=== PATIENT | female | born 1985 ===

== ENCOUNTER 2022-02-12 22:36 | Inpatient (IN) | payer OTHER ==
[2022-02-12] MEDS ORDERED: LACTATED RINGERS 1,000 ML IV SCH (23:45)
[2022-02-13] MEDS ORDERED: INSULIN GLARGINE 100 UNITS/ML SUB-Q ONE ×3 (00:17→04:00)
[2022-02-13] MEDS ORDERED: ACETAMINOPHEN 325 MG TAB PO PRN (00:32)
[2022-02-13] MEDS ORDERED: BUTORPHANOL 2 MG/1 ML INJ IV PRN (00:32)
[2022-02-13] MEDS ORDERED: ePHEDrine SULFATE 50 MG/1 ML INJ IV PRN (00:32)
[2022-02-13] MEDS ORDERED: fentaNYL 100 MCG/2 ML INJ IV PRN (00:32)
[2022-02-13] MEDS ORDERED: CARBOPROST TROMETHAMINE 250 MCG/1 ML INJ IM PRN (00:32)
[2022-02-13] MEDS ORDERED: METHYLERGONOVINE MALEATE 0.2 MG/ML VIAL IM PRN (00:32)
[2022-02-13] MEDS ORDERED: TERBUTALINE 1 MG/1 ML INJ SUB-Q PRN (00:32)
[2022-02-13] MEDS ORDERED: SODIUM CHLORIDE 0.9% 1000 ML 1,000 ML IV SCH (00:45)
--- NOTE | 2022-02-13 00:47 | History and Physical Report ---
History of Present Illness Date of examination: 02/13/22 Date of admission: 02/13/2022 Chief complaint: Leaking of fluid History of present illness: 36-year-old at 39-6/7 weeks gestation presents to OB triage reporting leaking of fluid. There is no vaginal bleeding. There are irregular contractions. There is good movement. In OB triage, ROM plus is positive. OB ultrasound limited revealed an amniotic fluid index of 1.4 cm. As such, this patient's clinical course fulfills the contemporary criteria for premature rupture of membranes at term (Term PROM). Cervical exam is 3 cm dilated. The patient is admitted to labor and delivery for induction of labor secondary to Term PROM. Past History Past Medical History: no pertinent history Past Surgical History: no surgical history Family/Genetic History: none Social history: no significant social history - Obstetrical History Expected Date of Delivery: 02/14/22 Actual Gestation: 39 Week(s) 6 Day(s) : 4 Para: 3 Medications and Allergies Allergies Allergy/AdvReac Type Severity Reaction Status Date / Time No Known Allergies Allergy Unverified 02/12/22 23:56 Active Meds: Active Medications Acetaminophen (Acetaminophen 325 Mg Tab) 650 mg PO Q4H PRN PRN Reason: Pain, Mild (1-3) Butorphanol Tartrate (Butorphanol 2 Mg/1 Ml Inj) 2 mg IV Q2H PRN PRN Reason: Pain, Moderate(4-6) LABOR PAIN Carboprost Tromethamine (Carboprost Tromethamine 250 Mcg/1 Ml Inj) 250 mcg IM ONCE PRN PRN Reason: Uterine Bleeding Ephedrine Sulfate (Ephedrine Sulfate 50 Mg/1 Ml Inj) 10 mg IV Q2M PRN PRN Reason: Hypotension Fentanyl (Fentanyl 100 Mcg/2 Ml Inj) 100 mcg IV Q2H PRN PRN Reason: Pain,Severe (7-10) LABOR PAIN Oxytocin/Sodium Chloride (Pitocin/Ns 30 Unit/500ml) 30 units in 500 mls @ 40 mls/hr IV TITR MIRNA; Protocol Sodium Chloride (Nacl 0.9% 1000 Ml) 1,000 mls @ 125 mls/hr IV DIRECT MIRNA Methylergonovine Maleate (Methylergonovine Maleate 0.2 Mg/Ml Vial) 0.2 mg IM ONCE PRN PRN Reason: Uterine Bleeding Misoprostol (Misoprostol 25 Mcg Tab) 25 mcg PO Q4H MIRNA Stop: 02/13/22 13:01 Terbutaline Sulfate (Terbutaline 1 Mg/1 Ml Inj) 0.25 mg SUB-Q ONCE PRN PRN Reason: Hyperstimulation/Hypertonicity - Vital Signs Vital signs: Vital Signs Temp 98.2 F 02/12/22 23:31 Temp Pulse Resp BP Pulse Ox 98.2 F 89 127/86 98 02/12/22 23:31 02/13/22 00:38 02/12/22 23:33 02/13/22 00:38 - Physical Exam Breasts: Positive: normal Cardiovascular: Regular rate Lungs: Positive: Normal air movement Abdomen: Positive: normal appearance Genitourinary (Female): Positive: normal external genitalia, normal perenium Vulva: both: normal Vagina: Positive: normal moisture Uterus: Positive: enlarged Adnexa: both: normal Anus/Rectum: Positive: normal perianal skin Extremities: Positive: normal Deep Tendon Reflex Grade: Normal +2 - Obstetrical FHR: category 1 Uterine Contraction Monitor Mode: External Cervical Dilatation: 3 Cervical Effacement Percentage: 70 station: -2 Uterine Contraction Frequency (min): 10 Uterine Contraction Pattern: Irregular Uterine Tone Measurement Phase: Contraction Results Result Diagrams: 02/13/22 01:11 All other labs normal. Ultrasound: report reviewed (OB Ultrasound Limited= SLIUP. Vertex. EFW= 3237 g (20th %-ile). JORGE A= 1.4 cm.), image reviewed Assessment and Plan - Patient Problems (1) 39 weeks gestation of Current Visit: Yes Status: Acute Plan to address problem: care is up-to-date at [facility]. She is GBS (-). (2) Full-term PROM with onset of labor more than 24 hours after rupture Current Visit: Yes Status: Acute Plan to address problem: In OB triage, ROM plus is positive. OB ultrasound limited revealed an amniotic fluid index of 1.4 cm. As such, this patient's clinical course fulfills the contemporary criteria for premature rupture of membranes at term (Term PROM). Cervical exam is 3 cm dilated. The patient is admitted to labor and delivery for induction of labor secondary to Term PROM. (3) Encounter for induction of labor Current Visit: Yes Status: Acute Plan to address problem: Cervical exam is 3 cm dilated. Ripen cervix further with oral Cytotec. (4) Gestational diabetes mellitus (GDM) treated with oral hypoglycemic therapy Current Visit: Yes Status: Acute Plan to address problem: The patient failed her 3-hour glucose tolerance test. Her Hemoglobin A1c was 5.1. According to the record, the patient was noncompliant with her bringing in her home glucose log. According the record, the patient was on metformin. However, further questioning of the patient reports intermittent or incomplete compliance with metformin use. Accu-Chek in OB triage was 88. Hemoglobin A1c was 5.1 today. Metformin is discontinued. The patient was placed on a 2200-calorie ADA diet. Lantus 24 units subcutaneously x1 was administered. The patient is on normal saline for IV fluids. Check fasting and 2-hour postmeal Accu-Cheks prior to active labor. The goal is to keep her fasting Accu-Cheks between 79-99, and her 2-hour post meal Accu-Cheks less than 120. When the patient is an active labor, Accu-Cheks are to be obtained hourly. The goal is to keep her hourly Accu-Cheks and active labor between 79-99. Supplemental Humalog or NovoLog may be needed to accomplish this. Once patient is , check Accu-Cheks fasting and 2-hour postprandial. At that time the goal is to keep her fasting Accu-Cheks between 79-99, and her 2-hour postmeal Accu-Cheks less than 120. Supplemental metformin may be needed to accomplish this at that time. (5) AMA (advanced maternal age) multigravida 35+ Current Visit: Yes Status: Acute Plan to address problem: Patient did not have screening for Down syndrome performed.
[2022-02-13] MEDS ORDERED: miSOPROStol 25 MCG TAB PO SCH ×2 (01:00→08:00)
[2022-02-13] MEDS ORDERED: OXYTOCIN DRIP 30 UNITS/500 ML BAG IV SCH ×2 (01:00→10:00)
--- NOTE | 2022-02-13 01:10 | Ultrasound Report ---
ULTRASOUND OBSTETRIC INDICATION / CLINICAL INFORMATION: Wellbeing. Clinical Gestational Age (GA) in weeks, days: 40, 0 TECHNIQUE: Transabdominal. COMPARISON: None available. FINDINGS: Single intrauterine . Biparietal Diameter = 8.9 cm = 36, 0 weeks, days Head Circumference = 34.5 cm = 39, 6 weeks, days Abdominal Circumference = 33.1 cm = 37, 0 weeks, days Femur Length = 7.5 cm = 38, 3 weeks, days Average Ultrasound Age (AUA) = 37, 6 weeks, days Heart Rate: 152 beats per minute. Estimated Weight in grams (if calculated): 3237 Estimated Weight Growth Percentile (if calculated): 20 Position: cephalic. Amniotic Fluid Volume: decreased Amniotic Fluid Index (JORGE A) in cm (if calculated): 1.4. IMPRESSION: 1. Single, living intrauterine with estimated sonographic age of 37, 6 weeks, days. 2. Oligohydramnios Signer Name: Remy Godinez DO Signed: 02/13/2022 1:05 AM Workstation Name: [id number]
[2022-02-13] MEDS ORDERED: LACTATED RINGERS 1,000 ML ONE ×3 (01:22→07:50)
[2022-02-13 01:49] LABS: Basophils # (Auto) 0.1 K/mm3 (0.0-0.1); Basophils % (Auto) 0.9 % (0.0-1.8); Eosinophils # (Auto) 0.1 K/mm3 (0.0-0.4); Eosinophils % (Auto) 0.6 % (0.0-4.3); Hematocrit 36.8 % (30.3-42.9); Hemoglobin 12.6 gm/dl (10.1-14.3); Lymphocytes # (Auto) 1.7 K/mm3 (1.2-5.4); Lymphocytes % (Auto) 18.1 % (13.4-35.0); Mean Corpuscular HGB Conc 34 % (30-34); Mean Corpuscular Volume 90 fl (79-97); Monocytes # (Auto) 0.5 K/mm3 (0.0-0.8); Platelet Count 211 K/mm3 (140-440); Red Blood Count 4.07 M/mm3 (3.65-5.03); Red Cell Distribution Width 15.6 % (13.2-15.2)
--- NOTE | 2022-02-13 08:07 | Event Note ---
Date: 02/13/22 Blood pressures are greater than or equal to 140/90 consistently. I suspect that this patient has a hypertensive disorder of (HDP), spe cifically that this patient has gestational hypertension or preeclampsia. Preeclampsia labs and urine protein/creatinine ratio were ordered. Furthermore, I advised the covering nurse and charge nurse to administer this patient's Cytotec so that induction of labor can be started. While there is tachycardia with heart rate in the 170s, I believe that induction of labor with Cytotec is the best course of action to treat this patient's Term PROM (and to mitigate the risk of intra amniotic infection and inflammation) and her hypertensive disorder of . This was conveyed to the covering nurse and charge nurse in real-time as well.
[2022-02-13 08:21] LABS: Basophils # (Auto) 0.1 K/mm3 (0.0-0.1); Basophils % (Auto) 0.8 % (0.0-1.8); Eosinophils % (Auto) 0.4 % (0.0-4.3); Hematocrit 36.7 % (30.3-42.9); Hemoglobin 12.3 gm/dl (10.1-14.3); Lymphocytes # (Auto) 1.4 K/mm3 (1.2-5.4); Lymphocytes % (Auto) 14.1 % (13.4-35.0); Mean Corpuscular HGB Conc 34 % (30-34); Mean Corpuscular Volume 91 fl (79-97); Monocytes # (Auto) 0.6 K/mm3 (0.0-0.8); Monocytes % (Auto) 6.2 % (0.0-7.3); Platelet Count 193 K/mm3 (140-440); Red Blood Count 4.04 M/mm3 (3.65-5.03); Red Cell Distribution Width 15.6 % (13.2-15.2)
[2022-02-13 08:43] LABS: Alanine Aminotransferase 16 units/L (7-56); Albumin 3.7 g/dL (3.9-5); Blood Urea Nitrogen 6 mg/dL (7-17); Hemolysis Index 9; Uric Acid 6.2 mg/dL (3.5-7.6)
[2022-02-13 08:50] LABS: BUN/Creatinine Ratio 10
--- NOTE | 2022-02-13 09:47 | Progress Note ---
Assessment and Plan A: IUP @ 39 6/7 Weeks Category I Tracing GDM Maternal Obesity AMA GBS Negative P: AROM of hindbag Start Pitocin Augmentation Continue MD Management of GDM Subjective - Subjective Date of service: 02/13/22 Patient reports: movement normal Objective - Vital Signs Vital Signs: Vital Signs - 12hr 02/12/22 02/12/22 02/12/22 23:31 23:33 23:38 Temperature 98.2 F Pulse Rate 88 88 Respiratory Rate Blood Pressure 127/86 Blood Pressure [Left] O2 Sat by Pulse 95 99 Oximetry 02/12/22 02/12/22 02/12/22 23:43 23:48 23:53 Temperature Pulse Rate 92 H 85 95 H Respiratory Rate Blood Pressure Blood Pressure [Left] O2 Sat by Pulse 99 98 97 Oximetry 02/12/22 02/13/22 02/13/22 23:58 00:03 00:08 Temperature Pulse Rate 93 H 89 96 H Respiratory Rate Blood Pressure Blood Pressure [Left] O2 Sat by Pulse 98 98 98 Oximetry 02/13/22 02/13/22 02/13/22 00:13 00:18 00:23 Temperature Pulse Rate 100 H 90 84 Respiratory Rate Blood Pressure Blood Pressure [Left] O2 Sat by Pulse 97 98 98 Oximetry 02/13/22 02/13/22 02/13/22 00:28 00:33 00:38 Temperature Pulse Rate 91 H 86 89 Respiratory Rate Blood Pressure Blood Pressure [Left] O2 Sat by Pulse 99 99 98 Oximetry 02/13/22 02/13/22 02/13/22 00:43 00:48 00:53 Temperature Pulse Rate 94 H 85 94 H Respiratory Rate Blood Pressure Blood Pressure [Left] O2 Sat by Pulse 98 98 98 Oximetry 02/13/22 02/13/22 02/13/22 00:58 01:03 01:08 Temperature Pulse Rate 87 89 85 Respiratory Rate Blood Pressure Blood Pressure [Left] O2 Sat by Pulse 99 98 98 Oximetry 02/13/22 02/13/22 02/13/22 01:13 01:18 01:23 Temperature Pulse Rate 84 90 92 H Respiratory Rate Blood Pressure Blood Pressure [Left] O2 Sat by Pulse 98 98 99 Oximetry 02/13/22 02/13/22 02/13/22 01:28 01:33 01:38 Temperature Pulse Rate 80 84 81 Respiratory Rate Blood Pressure Blood Pressure [Left] O2 Sat by Pulse 99 99 99 Oximetry 02/13/22 02/13/22 02/13/22 01:43 01:48 01:53 Temperature Pulse Rate 82 79 82 Respiratory Rate Blood Pressure Blood Pressure [Left] O2 Sat by Pulse 99 98 99 Oximetry 02/13/22 02/13/22 02/13/22 01:58 02:03 02:08 Temperature Pulse Rate 84 89 98 H Respiratory Rate Blood Pressure Blood Pressure [Left] O2 Sat by Pulse 99 99 99 Oximetry 02/13/22 02/13/22 02/13/22 02:13 02:18 02:23 Temperature Pulse Rate 81 82 84 Respiratory Rate Blood Pressure Blood Pressure [Left] O2 Sat by Pulse 98 98 99 Oximetry 02/13/22 02/13/22 02/13/22 02:28 02:33 02:38 Temperature Pulse Rate 84 94 H 84 Respiratory Rate Blood Pressure Blood Pressure [Left] O2 Sat by Pulse 99 99 98 Oximetry 02/13/22 02/13/22 02/13/22 02:43 02:48 02:53 Temperature Pulse Rate 85 79 79 Respiratory Rate Blood Pressure Blood Pressure [Left] O2 Sat by Pulse 99 99 99 Oximetry 02/13/22 02/13/22 02/13/22 02:58 03:03 03:08 Temperature Pulse Rate 85 77 83 Respiratory Rate Blood Pressure Blood Pressure [Left] O2 Sat by Pulse 98 98 99 Oximetry 02/13/22 02/13/22 02/13/22 03:13 03:18 03:23 Temperature Pulse Rate 80 79 86 Respiratory Rate Blood Pressure Blood Pressure [Left] O2 Sat by Pulse 99 98 98 Oximetry 02/13/22 02/13/22 02/13/22 03:26 03:28 03:33 Temperature Pulse Rate 76 84 83 Respiratory Rate Blood Pressure Blood Pressure [Left] O2 Sat by Pulse 90 98 98 Oximetry 02/13/22 02/13/22 02/13/22 03:58 03:59 04:03 Temperature Pulse Rate 87 78 79 Respiratory Rate Blood Pressure 147/79 Blood Pressure [Left] O2 Sat by Pulse 98 99 Oximetry 02/13/22 02/13/22 02/13/22 04:08 04:13 04:18 Temperature Pulse Rate 84 82 85 Respiratory Rate Blood Pressure Blood Pressure [Left] O2 Sat by Pulse 98 98 99 Oximetry 0602/13/22 02/13/22 04:21 04:23 04:28 Temperature 98.6 F Pulse Rate 85 79 80 Respiratory 17 Rate Blood Pressure Blood Pressure 147/79 [Left] O2 Sat by Pulse 99 99 99 Oximetry 02/13/22 02/13/22 02/13/22 04:33 04:38 04:43 Temperature Pulse Rate 84 79 90 Respiratory Rate Blood Pressure Blood Pressure [Left] O2 Sat by Pulse 99 99 98 Oximetry 02/13/22 02/13/22 02/13/22 04:48 04:53 04:58 Temperature Pulse Rate 84 85 87 Respiratory Rate Blood Pressure Blood Pressure [Left] O2 Sat by Pulse 99 99 98 Oximetry 02/13/22 02/13/22 02/13/22 05:03 05:08 05:13 Temperature Pulse Rate 82 87 87 Respiratory Rate Blood Pressure Blood Pressure [Left] O2 Sat by Pulse 98 99 98 Oximetry 02/13/22 02/13/22 02/13/22 05:18 05:23 05:28 Temperature Pulse Rate 85 97 H 81 Respiratory Rate Blood Pressure Blood Pressure [Left] O2 Sat by Pulse 98 98 99 Oximetry 02/13/22 02/13/22 02/13/22 05:33 05:38 05:43 Temperature Pulse Rate 81 89 87 Respiratory Rate Blood Pressure Blood Pressure [Left] O2 Sat by Pulse 98 98 98 Oximetry 02/13/22 02/13/22 02/13/22 05:48 05:53 05:58 Temperature Pulse Rate 79 86 83 Respiratory Rate Blood Pressure Blood Pressure [Left] O2 Sat by Pulse 98 98 98 Oximetry 02/13/22 02/13/22 02/13/22 06:03 06:08 06:13 Temperature Pulse Rate 86 87 88 Respiratory Rate Blood Pressure Blood Pressure [Left] O2 Sat by Pulse 98 98 99 Oximetry 02/13/22 02/13/22 02/13/22 06:18 06:23 06:28 Temperature Pulse Rate 82 89 90 Respiratory Rate Blood Pressure Blood Pressure [Left] O2 Sat by Pulse 99 98 98 Oximetry 02/13/22 02/13/22 02/13/22 06:33 06:38 06:43 Temperature Pulse Rate 92 H 89 84 Respiratory Rate Blood Pressure Blood Pressure [Left] O2 Sat by Pulse 99 98 99 Oximetry 02/13/22 02/13/22 02/13/22 06:48 06:53 06:58 Temperature Pulse Rate 85 91 H 90 Respiratory Rate Blood Pressure Blood Pressure [Left] O2 Sat by Pulse 99 99 99 Oximetry 02/13/22 02/13/22 02/13/22 07:03 07:08 07:13 Temperature Pulse Rate 89 84 83 Respiratory Rate Blood Pressure 138/77 Blood Pressure [Left] O2 Sat by Pulse 99 98 99 Oximetry 02/13/22 02/13/22 02/13/22 07:18 07:23 07:28 Temperature Pulse Rate 74 82 86 Respiratory Rate Blood Pressure Blood Pressure [Left] O2 Sat by Pulse 99 99 99 Oximetry 02/13/22 02/13/22 02/13/22 07:33 07:36 07:38 Temperature Pulse Rate 85 87 92 H Respiratory Rate Blood Pressure 157/87 Blood Pressure [Left] O2 Sat by Pulse 99 99 Oximetry 02/13/22 02/13/22 02/13/22 07:43 07:48 07:50 Temperature Pulse Rate 87 80 82 Respiratory Rate Blood Pressure 143/81 Blood Pressure [Left] O2 Sat by Pulse 99 99 Oximetry 02/13/22 02/13/22 02/13/22 07:53 07:54 07:58 Temperature 99.1 F Pulse Rate 90 82 Respiratory Rate Blood Pressure Blood Pressure [Left] O2 Sat by Pulse 100 99 Oximetry 02/13/22 02/13/22 02/13/22 08:03 08:05 08:08 Temperature Pulse Rate 84 80 85 Respiratory Rate Blood Pressure 146/86 Blood Pressure [Left] O2 Sat by Pulse 99 99 Oximetry 02/13/22 02/13/22 02/13/22 08:13 08:18 08:20 Temperature Pulse Rate 89 86 78 Respiratory Rate Blood Pressure 154/76 Blood Pressure [Left] O2 Sat by Pulse 98 98 Oximetry 02/13/22 02/13/22 02/13/22 08:23 08:30 08:35 Temperature Pulse Rate 89 86 83 Respiratory Rate Blood Pressure 141/74 Blood Pressure [Left] O2 Sat by Pulse 99 99 98 Oximetry 02/13/22 02/13/22 02/13/22 08:40 08:45 08:50 Temperature Pulse Rate 80 85 75 Respiratory Rate Blood Pressure 138/79 Blood Pressure [Left] O2 Sat by Pulse 99 99 98 Oximetry 02/13/22 02/13/22 02/13/22 08:55 09:00 09:05 Temperature Pulse Rate 82 92 H 84 Respiratory Rate Blood Pressure Blood Pressure [Left] O2 Sat by Pulse 98 99 98 Oximetry 02/13/22 02/13/22 02/13/22 09:06 09:10 09:15 Temperature Pulse Rate 86 87 79 Respiratory Rate Blood Pressure 145/85 Blood Pressure [Left] O2 Sat by Pulse 99 98 Oximetry 02/13/22 02/13/22 02/13/22 09:20 09:25 09:30 Temperature Pulse Rate 81 79 84 Respiratory Rate Blood Pressure 142/85 Blood Pressure [Left] O2 Sat by Pulse 99 98 99 Oximetry 02/13/22 02/13/22 09:35 09:40 Temperature Pulse Rate 86 89 Respiratory Rate Blood Pressure 136/84 Blood Pressure [Left] O2 Sat by Pulse 99 99 Oximetry - Exam Breasts: normal Cardiovascular: Regular rate Lungs: Normal air movement Abdomen: Present: normal appearance, soft Uterus: Present: normal, firm, fundal height above umbilicus FHR: category 1 Uterine Contraction Monitor Mode: External Cervical Dilatation: 4 (Rupture of bindbag at 0900: Small amount of cler fluid) Cervical Effacement Percentage: 70 station: -2 Uterine Contraction Pattern: Irregular Uterine Tone Measurement Phase: Resting Uterine Contraction Intensity: Mild Extremities: normal - Labs Labs: Abnormal Labs 02/13/22 02/13/22 02/13/22 01:11 08:08 08:08 RDW 15.6 H 15.6 H Seg Neutrophils % 75.4 H 78.5 H Seg Neutrophils # 8.0 H Sodium 135 L Carbon Dioxide 20 L BUN 6 L Alkaline Phosphatase 192 H Lactate Dehydrogenase 198 H Albumin 3.7 L Membranes Rupture 02/13/22 Unknown RDW Seg Neutrophils % Seg Neutrophils # Sodium Carbon Dioxide BUN Alkaline Phosphatase Lactate Dehydrogenase Albumin Membranes Rupture Positive A Laboratory Results - last 24 hr 02/13/22 02/13/22 02/13/22 01:11 01:11 01:11 WBC 9.5 RBC 4.07 Hgb 12.6 Hct 36.8 MCV 90 MCH 31 MCHC 34 RDW 15.6 H Plt Count 211 Lymph % (Auto) 18.1 [place] % (Auto) 5.0 Eos % (Auto) 0.6 Baso % (Auto) 0.9 Lymph # (Auto) 1.7 [place] # (Auto) 0.5 Eos # (Auto) 0.1 Baso # (Auto) 0.1 Seg Neutrophils % 75.4 H Seg Neutrophils # 7.2 Sodium Potassium Chloride Carbon Dioxide Anion Gap BUN Creatinine Estimated GFR BUN/Creatinine Ratio Glucose POC Glucose Hemoglobin A1c 5.1 Uric Acid Calcium Total Bilirubin AST ALT Alkaline Phosphatase Lactate Dehydrogenase Total Protein Albumin Albumin/Globulin Ratio Membranes Rupture Blood Type O POSITIVE Antibody Screen Negative 02/13/22 02/13/22 02/13/22 01:23 08:08 08:08 WBC 10.2 RBC 4.04 Hgb 12.3 Hct 36.7 MCV 91 MCH 31 MCHC 34 RDW 15.6 H Plt Count 193 Lymph % (Auto) 14.1 [place] % (Auto) 6.2 Eos % (Auto) 0.4 Baso % (Auto) 0.8 Lymph # (Auto) 1.4 [place] # (Auto) 0.6 Eos # (Auto) 0.0 Baso # (Auto) 0.1 Seg Neutrophils % 78.5 H Seg Neutrophils # 8.0 H Sodium 135 L Potassium 3.9 Chloride 100.5 Carbon Dioxide 20 L Anion Gap 18 BUN 6 L Creatinine 0.6 Estimated GFR > 60 BUN/Creatinine Ratio 10 Glucose 81 POC Glucose 82 Hemoglobin A1c Uric Acid 6.2 Calcium 9.0 Total Bilirubin 0.90 AST 24 ALT 16 Alkaline Phosphatase 192 H Lactate Dehydrogenase 198 H Total Protein 6.9 Albumin 3.7 L Albumin/Globulin Ratio 1.2 Membranes Rupture Blood Type Antibody Screen 02/13/22 02/13/22 08:38 Unknown WBC RBC Hgb Hct MCV MCH MCHC RDW Plt Count Lymph % (Auto) [place] % (Auto) Eos % (Auto) Baso % (Auto) Lymph # (Auto) [place] # (Auto) Eos # (Auto) Baso # (Auto) Seg Neutrophils % Seg Neutrophils # Sodium Potassium Chloride Carbon Dioxide Anion Gap BUN Creatinine Estimated GFR BUN/Creatinine Ratio Glucose POC Glucose 75 Hemoglobin A1c Uric Acid Calcium Total Bilirubin AST ALT Alkaline Phosphatase Lactate Dehydrogenase Total Protein Albumin Albumin/Globulin Ratio Membranes Rupture Positive A Blood Type Antibody Screen
[2022-02-13] MEDS ORDERED: LACTATED RINGERS 1,000 ML IV SCH (10:00)
[2022-02-13 10:56] LABS: Bilirubin,Urine NEG (Negative); Blood,Urine SM (Negative); Color,Urine Yellow (Yellow); Protein,Urine <15 mg/dL mg/dL (Negative); Urobilinogen,Urine < 2.0 mg/dL (<2.0)
[2022-02-13 11:01] LABS: Bacteria,Urine 1+ /HPF (Negative); Mucus,Urine FEW /HPF
[2022-02-13] MEDS ORDERED: MINERAL OIL 30 ML ORAL LIQD ONE (11:26)
[2022-02-13] MEDS ORDERED: LIDOCAINE (2%) 20 MG/1 ML VIAL 20 ML MDV INFILTRATI ONE (11:27)
[2022-02-13] MEDS ORDERED: diphenhydrAMINE 25 MG CAP PO PRN (12:54)
[2022-02-13] MEDS ORDERED: HYDROcodone/ACETAMINOPHEN 5-325 MG TAB PO PRN (12:54)
[2022-02-13] MEDS ORDERED: PROMETHAZINE 25 MG TAB PO PRN (12:54)
[2022-02-13] MEDS ORDERED: LANOLIN/ZINC/DIMETHICONE (LANSINOH) 7 GM TP PRN (12:54)
[2022-02-13] MEDS ORDERED: WITCH HAZEL/ GLYCERIN PAD TP PRN (12:54)
[2022-02-13] MEDS ORDERED: BENZOCAINE/MENTHOL 20/0.5% TOP SPRAY 56 GM TP PRN (12:54)
--- NOTE | 2022-02-13 12:54 | Procedure Note ---
OB Delivery Note - Delivery Date of Delivery: 02/13/22 (1230) Surgeon: MOLLY COLEMAN Estimated blood loss: other (150) - Vaginal Delivery presentation: vertex Delivery position: OA Intrapartum events: gestational hypertension Delivery induction: oxytocin Delivery augmentation: pitocin Delivery monitor: internal FHT, internal uterine Route of delivery: Delivery placenta: spontaneous Delivery cord: nuchal cord, 3 umbilical vessels Episiotomy: none Delivery laceration: 1st degree Delivery repair: vicryl Anesthesia: local Delivery comments: of a live 7'15 female infant over a 1st degree perineal laceration under IV pain control with Apgars of 8 and 9 at 1230 on 02/13/2022. Nuchal cord x 1 m anually reduced on the perineum with delivery of body. Infant directly to maternal abd/chest, skin to skin contact. Perineal laceration repaired with 2-0 vicryl on a SH under local 2% Lidocaine. Spontaneous delivery of placenta complete and intact with Schltz side presenting at 1238. Fundus is firm and midline located 4 below the U. Lochia is scant. Delayed cord clamping and cutting; Cord cut by the Father of the Baby. - Infant A at 1 minute: 8 at 5 minutes: 9 Infant Gender: Female (7'15)
[2022-02-13] MEDS: IBUPROFEN 600 MG TAB PO SCH ×3 (14:39→22:17)
[2022-02-13 15:15] LABS: Creatinine,Urine 56.9 mg/dL (0.1-20.0)
[2022-02-13] MEDS: ACETAMINOPHEN 500 MG TAB PO PRN (23:52)
[2022-02-14 00:57] LABS: Hematocrit 35.3 % (30.3-42.9); Hemoglobin 12.4 gm/dl (10.1-14.3); Mean Corpuscular HGB Conc 35 % (30-34); Mean Corpuscular Volume 89 fl (79-97); Platelet Count 180 K/mm3 (140-440); Red Blood Count 3.95 M/mm3 (3.65-5.03); Red Cell Distribution Width 15.7 % (13.2-15.2)
[2022-02-14 01:04] LABS: Bilirubin,Urine NEG (Negative); Blood,Urine MOD (Negative); Color,Urine Yellow (Yellow); Protein,Urine <15 mg/dL mg/dL (Negative); Urobilinogen,Urine < 2.0 mg/dL (<2.0)
[2022-02-14 01:14] LABS: Bacteria,Urine 1+ /HPF (Negative); Mucus,Urine FEW /HPF
[2022-02-14] MEDS ORDERED: GENTAMICIN 360 MG in SODIUM CHLORIDE 0.9% 100 ML IV SCH (02:00)
[2022-02-14] MEDS: AMPICILLIN/NS 2 GM/100 ML 2 GM/100 ML BAG IV SCH ×4 (02:51→21:38)
[2022-02-14] MEDS: SODIUM CHLORIDE 0.9% 1000 ML 1,000 ML IV SCH (02:52)
[2022-02-14] MEDS: metroNIDAZOLE/NS 500 MG/100 ML 500 MG/100 ML BAG IV SCH ×3 (02:52→20:05)
[2022-02-14 04:10] LABS: Basophils % (Manual) 0 % (0.0-1.8); Eosinophils % (Manual) 0 % (0.0-4.3); Platelet Estimate Consistent w Auto; RBC Morphology Normal; Total Cells Counted 100
[2022-02-14] MEDS: GENTAMICIN/NS 100 MG/100 ML 100 MG/100 ML BAG IV SCH ×3 (04:20→19:26)
[2022-02-14] MEDS: IBUPROFEN 600 MG TAB PO SCH ×3 (06:46→23:49)
[2022-02-14 06:53] LABS: Hematocrit 34.6 % (30.3-42.9); Hemoglobin 11.6 gm/dl (10.1-14.3); Mean Corpuscular HGB Conc 33 % (30-34); Mean Corpuscular Volume 92 fl (79-97); Platelet Count 158 K/mm3 (140-440); Red Blood Count 3.77 M/mm3 (3.65-5.03); Red Cell Distribution Width 15.7 % (13.2-15.2)
[2022-02-14 08:21] LABS: Band Neutrophils # (Manual) 0.5 K/mm3; Basophils % (Manual) 0 % (0.0-1.8); Eosinophils % (Manual) 0 % (0.0-4.3); Platelet Estimate Consistent w Auto; RBC Morphology Normal; Total Cells Counted 100
--- NOTE | 2022-02-14 09:21 | Progress Note ---
Assessment and Plan O: Had elevated WBC and lactic acid prior to starting antibiotics, now decreasing A: PPD # 1-Fever P: On antibiotics Will redraw labs in am Ambulate Probable D/C in am Subjective - Subjective Date of service: 02/14/22 Principal diagnosis: PPD #1 - fever Patient reports: appetite normal [place]: doing well Objective - Vital Signs Latest vital signs: Vital Signs Temp Pulse Resp BP Pulse Ox Pulse Ox 02/14/22 06:46 18 02/14/22 04:30 98.8 F 02/14/22 01:03 100.8 F H 113 H 18 112/65 98 02/14/22 00:46 101.4 F H 02/13/22 23:15 101.3 F H 02/13/22 23:12 103.1 F H 02/13/22 23:10 102.5 F H 02/13/22 22:51 98 02/13/22 22:24 99.9 F H 02/13/22 22:17 18 02/13/22 21:56 98.5 F 90 20 124/60 99 02/13/22 17:32 20 02/13/22 16:10 98.7 F 92 H 20 117/73 98 02/13/22 15:55 100 02/13/22 14:30 98.2 F 20 02/13/22 14:27 96 H 136/73 02/13/22 14:12 92 H 137/72 02/13/22 13:57 87 146/74 02/13/22 13:42 89 148/70 02/13/22 13:27 148/67 02/13/22 13:12 90 147/73 02/13/22 13:00 98.2 F 20 02/13/22 12:55 90 141/74 98 02/13/22 12:50 87 140/72 98 02/13/22 12:46 87 146/68 02/13/22 12:45 85 99 02/13/22 12:40 98.2 F 90 20 99 02/13/22 12:39 87 143/59 02/13/22 12:36 82 152/66 02/13/22 12:35 81 98 02/13/22 12:30 83 99 02/13/22 12:28 60 92 02/13/22 12:25 92 H 99 02/13/22 12:20 83 151/88 98 02/13/22 12:15 78 99 02/13/22 12:10 76 164/96 96 02/13/22 12:08 75 163/90 02/13/22 12:07 75 171/96 02/13/22 12:05 78 98 02/13/22 12:00 98.4 F 75 20 98 02/13/22 11:55 78 98 02/13/22 11:50 75 157/88 97 02/13/22 11:45 78 98 02/13/22 11:40 76 97 02/13/22 11:35 75 156/88 99 02/13/22 11:30 81 100 02/13/22 11:25 86 97 02/13/22 11:20 82 138/78 98 02/13/22 11:15 94 H 99 02/13/22 11:10 94 H 99 02/13/22 11:08 86 146/83 02/13/22 11:05 85 143/115 99 02/13/22 11:00 84 99 02/13/22 10:55 89 98 02/13/22 10:51 93 H 149/94 90 02/13/22 10:50 87 98 02/13/22 10:45 86 96 02/13/22 10:40 90 98 02/13/22 10:35 85 158/90 93 02/13/22 10:30 78 99 02/13/22 10:25 81 99 02/13/22 10:20 88 148/88 99 02/13/22 10:15 81 98 02/13/22 10:10 82 99 02/13/22 10:06 80 145/86 02/13/22 10:05 78 99 02/13/22 10:00 98.6 F 82 20 98 02/13/22 09:55 81 98 02/13/22 09:50 77 138/84 99 02/13/22 09:45 84 99 02/13/22 09:40 89 99 02/13/22 09:35 86 136/84 99 02/13/22 09:30 84 99 02/13/22 09:25 79 98 02/13/22 09:20 81 142/85 99 Intake and Output 02/13/22 02/14/22 02/14/22 22:59 06:59 14:59 Intake Total 540 580 Output Total 2100 1700 Balance -1560 -1120 Intake: IV 100 AMPICILLIN/NS 2 GM/100 ML 100 2 gm In 100 ml @ 100 mls /hr IV Q6H [facility] Rx#: [id number] Oral 420 Intake, Free Water 120 480 Output: Urine 2100 1700 Self-Catheterization 900 Void 2100 800 Other: Total, Intake Amount 120 Total, Output Amount 500 800 # Voids Void 2 Estimated Blood Loss 150 - Exam Breasts: Present: deferred Cardiovascular: Present: Regular rate Abdomen: Present: soft Uterus: Present: fundal height below umbilicus Extremities: Present: normal Deep Tendon Reflex Grade: Normal +2 - Labs Labs: Abnormal lab results 02/13/22 02/13/22 02/13/22 Range/Units 08:15 08:15 16:42 WBC (4.5-11.0) K/mm3 MCHC (30-34) % RDW (13.2-15.2) % Seg Neuts % (Manual) (40.0-70.0) % Lymphocytes % (Manual) (13.4-35.0) % Seg Neutrophils # Man (1.8-7.7) K/mm3 Lymphocytes # (Manual) (1.2-5.4) K/mm3 POC Glucose 109 H (70-105) mg/dL Lactic Acid (0.7-2.0) mmol/L Urine WBC (Auto) 56.0 H (0.0-6.0) /HPF Urine Creatinine 56.9 H (0.1-20.0) mg/dL Urine Total Protein 35 H (5-11.8) mg/dL 02/13/22 02/14/22 02/14/22 Range/Units Unknown 00:01 00:01 WBC 13.3 H (4.5-11.0) K/mm3 MCHC 35 H (30-34) % RDW 15.7 H (13.2-15.2) % Seg Neuts % (Manual) 97.0 H (40.0-70.0) % Lymphocytes % (Manual) 1.0 L (13.4-35.0) % Seg Neutrophils # Man 12.9 H (1.8-7.7) K/mm3 Lymphocytes # (Manual) 0.1 L (1.2-5.4) K/mm3 POC Glucose (70-105) mg/dL Lactic Acid 2.10 H* (0.7-2.0) mmol/L Urine WBC (Auto) 59.0 H (0.0-6.0) /HPF Urine Creatinine (0.1-20.0) mg/dL Urine Total Protein (5-11.8) mg/dL 02/14/22 02/14/22 Range/Units 06:42 08:28 WBC (4.5-11.0) K/mm3 MCHC (30-34) % RDW 15.7 H (13.2-15.2) % Seg Neuts % (Manual) 88.0 H (40.0-70.0) % Lymphocytes % (Manual) 4.0 L (13.4-35.0) % Seg Neutrophils # Man 7.9 H (1.8-7.7) K/mm3 Lymphocytes # (Manual) 0.4 L (1.2-5.4) K/mm3 POC Glucose 124 H (70-105) mg/dL Lactic Acid (0.7-2.0) mmol/L Urine WBC (Auto) (0.0-6.0) /HPF Urine Creatinine (0.1-20.0) mg/dL Urine Total Protein (5-11.8) mg/dL
[2022-02-14] MEDS: PRENATAL VIT27-FE FUMARATE-FOLIC ACID VIT TAB PO SCH (11:08)
[2022-02-15] MEDS: ACETAMINOPHEN 500 MG TAB PO PRN (02:20)
[2022-02-15] MEDS: GENTAMICIN/NS 100 MG/100 ML 100 MG/100 ML BAG IV SCH ×3 (03:20→19:06)
[2022-02-15] MEDS: AMPICILLIN/NS 2 GM/100 ML 2 GM/100 ML BAG IV SCH ×4 (03:51→23:43)
[2022-02-15] MEDS: metroNIDAZOLE/NS 500 MG/100 ML 500 MG/100 ML BAG IV SCH ×3 (04:57→21:10)
[2022-02-15] MEDS: IBUPROFEN 600 MG TAB PO SCH ×3 (05:37→21:09)
[2022-02-15] MEDS: PRENATAL VIT27-FE FUMARATE-FOLIC ACID VIT TAB PO SCH (09:56)
[2022-02-15 11:27] LABS: Basophils % (Auto) 0.5 % (0.0-1.8); Hematocrit 32.8 % (30.3-42.9); Lymphocytes # (Auto) 0.7 K/mm3 (1.2-5.4); Lymphocytes % (Auto) 11.3 % (13.4-35.0); Mean Corpuscular HGB Conc 34 % (30-34); Mean Corpuscular Volume 91 fl (79-97); Monocytes # (Auto) 0.6 K/mm3 (0.0-0.8); Monocytes % (Auto) 8.5 % (0.0-7.3); Platelet Count 154 K/mm3 (140-440); Red Blood Count 3.61 M/mm3 (3.65-5.03); Red Cell Distribution Width 15.7 % (13.2-15.2)
--- NOTE | 2022-02-15 12:58 | Progress Note ---
Assessment and Plan O: Temp 102.6 at 1 am, on Amp and Gent, gram neg rods in urine A: PPD # 2 - febrile P: Continue post care Possible discharge in am Subjective - Subjective Date of service: 02/15/22 Principal diagnosis: PPD #2 - fever Patient reports: appetite normal : doing well Objective - Vital Signs Latest vital signs: Vital Signs Temp Pulse Resp BP BP Pulse Ox Pulse Ox 02/15/22 08:17 99 02/15/22 05:37 20 02/15/22 02:50 99.5 F 02/15/22 02:20 18 02/15/22 00:55 102.6 F H 113 H 18 112/55 97 02/14/22 23:49 20 02/14/22 20:00 99 02/14/22 16:08 98.4 F 92 H 18 122/84 99 Intake and Output 02/14/22 02/15/22 02/15/22 22:59 06:59 14:59 Intake Total 760 1380 720 Output Total 500 Balance 260 1380 720 Intake: IV 400 300 AMPICILLIN/NS 2 GM/100 ML 200 100 2 gm In 100 ml @ 100 mls /hr IV Q6H [facility] Rx#: [id number] FLAGYL 500 MG/100 ML 500 100 100 mg In 100 ml @ 100 mls/hr IV Q8H [facility] Rx#:[id number] GENTAMICIN/NS 100 MG/100 100 100 ML 100 mg In 100 ml @ 200 mls/hr IV Q8H [facility] Rx#: [id number] Oral 360 360 Intake, Free Water 1080 360 Output: Urine 500 Self-Catheterization 500 Other: Total, Intake Amount 360 240 Total, Output Amount 500 # Voids Void 2 1 - Exam Breasts: Present: deferred Cardiovascular: Present: Regular rate Lungs: Present: Clear to auscultation Abdomen: Present: soft Uterus: Present: fundal height below umbilicus Deep Tendon Reflex Grade: Normal +2 - Labs Labs: Abnormal lab results 02/15/22 Range/Units 10:55 RBC 3.61 L (3.65-5.03) M/mm3 RDW 15.7 H (13.2-15.2) % Lymph % (Auto) 11.3 L (13.4-35.0) % [place] % (Auto) 8.5 H (0.0-7.3) % Lymph # (Auto) 0.7 L (1.2-5.4) K/mm3 Seg Neutrophils % 79.7 H (40.0-70.0) %
[2022-02-15] MEDS: SODIUM CHLORIDE 0.9% 1000 ML 1,000 ML IV SCH (15:39)
[2022-02-16] MEDS: IBUPROFEN 600 MG TAB PO SCH ×2 (03:29→06:44)
[2022-02-16] MEDS: GENTAMICIN/NS 100 MG/100 ML 100 MG/100 ML BAG IV SCH (06:23)
[2022-02-16] MEDS: AMPICILLIN/NS 2 GM/100 ML 2 GM/100 ML BAG IV SCH (08:25)
--- NOTE | 2022-02-16 08:52 | Discharge Summary ---
Providers - Providers Date of Admission: 02/13/22 00:38 Date of discharge: 02/16/22 Attending physician: KRZYSZTOF PHAM MD Primary care physician: KRZYSZTOF PHAM MD Hospitalization Reason for admission: rupture of membranes Delivery: Laceration: 1st degree complications: UTI (with Fever) Discharge diagnosis: IUP at term delivered baby: female Hospital course: O: afebrile for 24 hrs A: PPD # 3 - stable P: Will D/C home today Keflex RX sent to pharmacy F/U in 6 weeks Condition at discharge: Good Disposition: HOME / SELF CARE / HOMELESS Plan - Discharge Medications Prescriptions: cephALEXin [Keflex] 500 mg PO Q6HR #20 capsule Ibuprofen [Motrin 600 MG tab] 600 mg PO Q6H #30 tablet - Provider Discharge Summary Activity: routine, no sex for 6 weeks, no strenuous exercise Diet: routine Instructions: routine Additional instructions: [] Smoking cessation referral if applicable(refer to patient education folder for contact #) [] Refer to [facility] Call your doctor immediately for: * Fever > 100.5 * Heavy vaginal bleeding ( >1 pad per hour) * Severe persistent headache * Shortness of breath * Reddened, hot, painful area to leg or breast * Drainage or odor from incision. * Keep incision clean and dry at all times and follow doctor's instructions regarding bathing/showering - Follow up plan Follow up: KRZYSZTOF PHAM MD [Primary Care Provider] - 6 Weeks
[2022-02-16 09:54] VITALS: BP 127/70
[2022-02-16] MEDS ORDERED: cephALEXin 500 MG CAP PO SCH (12:00)
== END 2022-02-16 11:15 | disposition home or self-care (01) | DRG 805 ==
LOC: TRG 22:36 → APU 22:37 → TRG 02-13 00:36 → LD 02-13 00:38 → OB 02-13 15:29
PROVIDERS: ADMIT Obstetrics & Gynecology Gynecology; ATTEND Obstetrics & Gynecology Gynecology
PROC: 10E0XZZ Delivery of Products of Conception, External Approach (ICD-10-PCS; principal; 2022-02-13)
PROC: 3E033VJ Introduction of Other Hormone into Peripheral Vein, Percutaneous Approach (ICD-10-PCS; 2022-02-13)
PROC: 0HQ9XZZ Repair Perineum Skin, External Approach (ICD-10-PCS; 2022-02-13)
DX: O24.425 Gestational diabetes mellitus in childbirth, controlled by oral hypoglycemic drugs (principal); O75.3 Other infection during labor; Z37.0 Single live birth; N39.0 Urinary tract infection, site not specified; Z3A.39 39 weeks gestation of pregnancy; Z20.822 Contact with and (suspected) exposure to COVID-19; O42.02 Full-term premature rupture of membranes, onset of labor within 24 hours of rupture; O99.214 Obesity complicating childbirth; O13.4 Gestational [pregnancy-induced] hypertension without significant proteinuria, complicating childbirth; O70.0 First degree perineal laceration during delivery; O69.81X0 Labor and delivery complicated by cord around neck, without compression, not applicable or unspecified
CPT/HCPCS: 36415; 76816; 80053; 80170; 81001; 82140; 82570; 82962; 83036; 83615; 84112; 84156; 84550; 85007; 85025; 86850; 86900; 86901; 87040; 87076; 87086; 87186; G0378; J3490; J7517; J0290; J0595; J1580; J1815; J2590; J7030; J7120; U0003